=== PATIENT | female | born 1985 | race Caucasian/White ===

== ENCOUNTER 2018-09-16 18:55 | Emergency (ER) | payer OTHER ==
[2018-09-16 19:08] VITALS: BP 124/74
--- NOTE | 2018-09-16 20:55 | UC ---
Respiratory Complaint HPI - HPI Summary HPI Summary: 3 DAYS OF URI SYMPTOMS INCLUDING COUGH, SORE THROAT AND PAIN WITH SWALLOWING. STATES FEVER OF 101 FOR THE FIRST 2 DAYS BUT NONE TODAY. HAS A MILD HEADACHE. NO NAUSEA/VOMITING. IS CONCERNED ABOUT STREP. - History of Current Complaint Chief Complaint: UCGeneralIllness Stated Complaint: FEVER, HEADACHE, AND NECK PAIN Time Seen by Provider: 09/16/18 19:29 Hx Obtained From: Patient Hx Last Menstrual Period: [id number] Onset/Duration: Gradual Onset, Lasting Days, Still Present Timing: Constant Severity Initially: Moderate Severity Currently: Mild Pain Intensity: 2 Pain Scale Used: 0-10 Numeric Character: Cough: Nonproductive Aggravating Factors: Nothing Alleviating Factors: Nothing Associated Signs And Symptoms: Positive: URI, Nasal Congestion. Negative: Dyspnea, Fever, Wheezing - Allergies/Home Medications Allergies/Adverse Reactions: Allergies Allergy/AdvReac Type Severity Reaction Status Date / Time No Known Allergies Allergy Verified 09/16/18 19:08 Home Medications: Home Medications Desogestrel-Ethinyl Estradiol [Velivet 28 Day Tablet] 1 each PO DAILY 09/16/18 [ History Confirmed 09/16/18] Ibuprofen TAB* [Motrin TAB* 400 MG] 400 mg PO Q6H PRN 09/16/18 [History Confirmed 09/16/18] Loratadine [Claritin 10 MG CAP] 10 mg PO DAILY 09/16/18 [History Confirmed 09/16] PMH/Surg Hx/FS Hx/Imm Hx Previously Healthy: Yes - Surgical History Surgical History: Yes Surgery Procedure, Year, and Place: wisdom teeth extracted - Family History Known Family History: Positive: Non-Contributory - Social History Alcohol Use: Occasionally Substance Use Type: None Smoking Status (MU): Never Smoked Tobacco Review of Systems All Other Systems Reviewed And Are Negative: Yes Constitutional: Positive: Fever, Fatigue ENT: Positive: Sore Throat, Nasal Discharge Respiratory: Positive: Cough Cardiovascular: Positive: Negative Gastrointestinal: Positive: Negative Neurological: Positive: Headache Physical Exam Triage Information Reviewed: Yes Appearance: Well-Appearing, No Pain Distress, Well-Nourished Vital Signs: Initial Vital Signs Temp 98.2 F 09/16/18 19:03 Pulse 103 09/16/18 19:03 Resp 16 09/16/18 19:03 BP 124/74 09/16/18 19:03 Pulse Ox 100 09/16/18 19:03 Laboratory Tests 09/16/18 19:14 Group A Strep Rapid Negative Vital Signs Reviewed: Yes Eyes: Positive: Conjunctiva Clear ENT: Positive: Hearing grossly normal, Pharynx normal, TMs normal Neck: Positive: Supple, Nontender, No Lymphadenopathy Respiratory Exam: Normal Cardiovascular Exam: Normal Abdomen Description: Positive: Soft Musculoskeletal: Positive: No Edema Neurological: Positive: Alert Psychological: Positive: Age Appropriate Behavior Skin: Negative: Rashes Respiratory Course/Dx - Differential Dx/Diagnosis Provider Diagnosis: Upper respiratory infection Discharge - Sign-Out/Discharge Documenting (check all that apply): Patient Departure All imaging exams completed and their final reports reviewed: No Studies - Discharge Plan Condition: Stable Disposition: HOME Patient Education Materials: Pharyngitis (ED), Upper Respiratory Infection (ED) Referrals: [facility] [Outside] - If Needed Additional Instructions: STREP TEST NEGATIVE. YOUR SYMPTOMS ARE LIKELY VIRALLY MEDIATED AND SHOULD RESOLVE ON THEIR OWN WITH TIME. NO INDICATION FOR ANTIBIOTICS AT PRESENT. REST, HYDRATE, OTC MEDS NEEDED. SEEK FOLLOW-UP IF YOU ARE NOT IMPROVING OVER THE NEXT 1-2 WEEKS. CALL THE NUMBER BELOW FOR ASSISTANCE IN ESTABLISHING WITH A PCP An additional resource available to assist in finding the appropriate physician for your health care needs is [facility] ([facility]). You may contact them by calling [phone]. - Billing Disposition and Condition Condition: STABLE Disposition: Home
== END 2018-09-16 19:55 | disposition home or self-care (01) ==
LOC: UCEAST 18:55
DX: J06.9 Acute upper respiratory infection, unspecified (principal); R51 Headache
CPT/HCPCS: 87651; 99211; G0463